=== PATIENT | male | born 1965 | race Caucasian/White ===

== ENCOUNTER → 2021-10-13 | Outpatient (CLI) | payer OTHER ==
[~2021-10-13] MED LIST: ABILIFY10 MG PO; ALLERCLEAR10 MG PO; BENAZEPRIL HCL20 MG PO; BRILINTA 90 MG90 MG PO; BUPROPION HCL100 M1 PO; CILOSTAZOL50 MG PO; FLOMAX 0.4 MG0.4 MG PO; FLUOXETINE HCL40 MG PO; GLUCOPHAGE1000 MG PO; HABITROL 21 MG P1 EA TD; HUMULIN 70100 UNIT/1 SQ; HYDROCHLOROTH12.5 MG PO; LANTUS SOL100 UNIT/1 SQ; LEVOTHYROXINE50 MCG PO; LORTAB 7.5-3251 EACH PO; NEURONTIN 400400 MG PO; NITROGLYCERIN0.4 MG SL; NORVASC 5 MG TAB5 MG PO; PROTONIX40 MG PO; SIMVASTATIN20 MG PO; SIMVASTATIN40 MG PO; TOPAMAX50 MG PO; TOPROL XL 25 MG25 MG PO; VISTARIL 25 MG25 MG PO; WELLBUTRIN SR100 MG PO
== END ==
LOC: RAD 08:00
DX: G89.29 Other chronic pain (principal); M54.50 Low back pain, unspecified
CPT/HCPCS: 72132

== ENCOUNTER → 2022-01-22 | Outpatient (CLI) | payer OTHER | LOC: HEART CORB 09:30 | DX: I25.10 Atherosclerotic heart disease of native coronary artery without angina pectoris (principal); R07.2 Precordial pain; Z95.5 Presence of coronary angioplasty implant and graft; I25.2 Old myocardial infarction; I10 Essential (primary) hypertension; E78.5 Hyperlipidemia, unspecified | CPT/HCPCS: 78452; A9502; J2785 ==